=== PATIENT | male | born 1990 | race Caucasian/White ===

== ENCOUNTER 2017-01-15 08:37 | Day surgery (SDC) | payer BC ==
[~2017-01-15] VITALS: Ht 185.4 cm; Wt 72.0 kg
[~2017-01-15 08:37] MED LIST: CALC0.5C PO; CHOL5000 PO; HEPARIN 1,000 UNITS/ML, 10ML ONE; INSU100V14 SC; IRBE300T16 PO; LORA0.5T PO; MAGN400T7 PO; METO5TAB5 PO; PROTAMINE SULFATE 10 MG/ML, 5ML ONE; SODI650T PO; THROMBIN 5,000 UNIT VIAL TP ONE; tums PO
[2017-01-15] MEDS ORDERED: SODIUM CHLORIDE 0.9% 1,000 ML IV SCH (09:01)
[2017-01-15 09:05] VITALS: BP 162/107
[2017-01-15] MEDS ORDERED: LIDOCAINE 1%, 2ML SQ PRN (09:30)
[2017-01-15] MEDS ORDERED: MIDAZOLAM 1 MG/ML, 2ML ONE (09:43)
[2017-01-15] MEDS ORDERED: FENTANYL PF 100 MCG/2ML ONE (09:43)
[2017-01-15] MEDS ORDERED: SPIR25TA3 PO (09:54)
[2017-01-15] MEDS ORDERED: AMLO10TA2 PO (09:54)
[2017-01-15] MEDS ORDERED: ONDA-39 PO (09:54)
[2017-01-15] MEDS ORDERED: CLON-275 PO (09:54)
[2017-01-15] MEDS ORDERED: NIAC250T7 PO (09:54)
[2017-01-15] MEDS ORDERED: CEFAZOLIN 1,000 MG ONE (10:48)
[2017-01-15] MEDS ORDERED: PHENYLEPHRINE 10 MG/ML ONE (10:48)
[2017-01-15] MEDS ORDERED: ONDANSETRON 2MG/ML, 2ML ONE (10:48)
[2017-01-15] MEDS ORDERED: PROPOFOL 10 MG/ML, 20ML ONE (10:48)
[2017-01-15] MEDS ORDERED: METOCLOPRAMIDE 5 MG/ML, 2ML ONE (10:48)
[2017-01-15] MEDS ORDERED: HEPARIN 1,000 UNITS/ML, 10ML IV ONE (10:59)
[2017-01-15] MEDS ORDERED: ACETAMINOPHEN 325 MG TABLET PO PRN (12:00)
[2017-01-15] MEDS ORDERED: HYDROmorphone 1 MG/ML, 1ML IV PRN (12:00)
[2017-01-15] MEDS ORDERED: PROMETHAZINE 25 MG/ML, 1ML IV PRN (12:00)
[2017-01-15] MEDS ORDERED: FENTANYL PF 100 MCG/2ML IV PRN (12:00)
[2017-01-15] MEDS ORDERED: OXYcodone 5 MG/5 ML ORAL.SOL UDC PO PRN (12:00)
== END 2017-01-15 13:50 ==
LOC: OUT 08:37
PROVIDERS: ATTEND Surgery Vascular Surgery
DX: E10.22 Type 1 diabetes mellitus with diabetic chronic kidney disease (principal); N18.9 Chronic kidney disease, unspecified; Z88.8 Allergy status to other drugs, medicaments and biological substances
CPT/HCPCS: 36415; 36821; 80047; 82962; 93005; J0690; J1644; J2250; J2370; J2405; J2704; J2765; J3010; J7030; J2720